=== PATIENT | female | born 1985 | race Two or more races ===

== ENCOUNTER 2016-09-15 11:22 | Emergency (ER) | payer SELFPAY ==
[~2016-09-15] VITALS: Ht 167.6 cm; Wt 64.0 kg
[2016-09-15 11:25] VITALS: BP 136/92
== END 2016-09-15 14:11 | disposition home or self-care (01) ==
LOC: ED 13:30
DX: S93.492A Sprain of other ligament of left ankle, initial encounter (principal); X58.XXXA Exposure to other specified factors, initial encounter; Y93.89 Activity, other specified; Y92.89 Other specified places as the place of occurrence of the external cause; Y99.8 Other external cause status
CPT/HCPCS: 99284